=== PATIENT | female | born 1980 | race Caucasian/White ===

== ENCOUNTER 2019-12-26 08:00 | Inpatient (IN) ==
[2019-12-26] MEDS ORDERED: Famotidine 20 MG/2 ML VIAL IVP PRN (08:29)
[2019-12-26] MEDS ORDERED: *HR* FentaNYL (PF) 100 MCG/2 ML VIAL IVP PRN (08:29)
[2019-12-26] MEDS ORDERED: Naloxone 0.4 MG/ML INJ IVP PRN (08:29)
[2019-12-26] MEDS ORDERED: Metoclopramide 10 MG/2 ML VIAL IVP PRN (08:29)
[2019-12-26] MEDS ORDERED: Lidocaine 1% 20 ML MDV INFILT PRN (08:31)
[2019-12-26] MEDS ORDERED: Ondansetron 4 MG/2 ML VIAL IVP PRN (08:31)
[2019-12-26] MEDS ORDERED: Azithromycin 500 MG in 0.9 % Sodium Chloride 250 ML IVPB PRN (08:31)
[2019-12-26] MEDS ORDERED: miSOPROStoL 25 MCG TABLET VG PRN (09:24)
[2019-12-26 09:36] LABS: Basophils % 0.3 %; Eosinophils # 0.2 K/mcL (0.0-0.6); Eosinophils % 1.9 %; Hematocrit 36.8 % (35.3-44.9); Hemoglobin 12.4 g/dL (11.5-15.4); Immature Granulocytes % 0.5 % (0-4); Lymphocytes # 2.3 K/mcL (0.6-4.6); Lymphocytes % 22.9 %; Mean Corpuscular HGB Conc 33.7 g/dL (31.6-35.5); Mean Platelet Volume 11.3 fL (9.4-12.4); Monocytes # 0.9 K/mcL (0.0-1.3); Monocytes % 9.1 %; Neutrophils # 6.5 K/mcL (1.6-8.9); Platelet Count 183 K/mcL (140-400); Red Cell Distribution Width 13.3 % (11.5-14.5); Segmented Neutrophils % 65.3 %
[2019-12-26] MEDS: Ringers Solution, Lactated 1,000 ML IVC SCH ×2 (10:30→13:51)
[2019-12-26] MEDS ORDERED: EPHEDrine 50 MG/ML VIAL IVP PRN (11:56)
[2019-12-26] MEDS ORDERED: Epidural Premix (fent/bupiv) 110 ML EP SCH (12:00)
[2019-12-26] MEDS ORDERED: *HR* Oxytocin 10 UNIT/ML VIAL IM ONE (13:03)
[2019-12-26] MEDS ORDERED: Methylergonovine 0.2 MG/ML AMPUL IM ONE (13:03)
[2019-12-26] MEDS ORDERED: *HR* FentaNYL (PF) 100 MCG/2 ML VIAL ONE (13:17)
[2019-12-26 13:50] LABS: Amphetamine Screen,Urine Negative ng/mL (Cutoff=1000); Barbiturate Screen,Urine Negative ng/mL (Cutoff=200); Benzodiazepines Screen,Urine Negative ng/mL (Cutoff=200); Cannabinoid Screen,Urine Negative ng/mL (Cutoff = 50); Cocaine Screen,Urine Negative ng/mL (Cutoff= 300); Opiate Screen,Urine Negative ng/mL (Cutoff=300); Phencyclidine Screen,Urine Negative ng/mL (Cutoff=25)
[2019-12-26] MEDS ORDERED: Oxytocin 20 units/ LR 1000 mL 20 UNIT/1,000 ML BAG IVC SCH (16:30)
[2019-12-26] MEDS ORDERED: Acetaminophen 325 MG TABLET PO PRN (23:25)
[2019-12-26] MEDS ORDERED: Measles/Mumps/Rubella Vacc 0.5 ML VIAL SQ PRN (23:25)
[2019-12-26] MEDS ORDERED: Benzocaine/Menthol 56 GM AEROSOL SPRAY TP PRN (23:25)
[2019-12-26] MEDS ORDERED: Lanolin 7 G OINT...G. TP PRN (23:25)
[2019-12-26] MEDS ORDERED: Rho Immune Globulin 1,500 UNIT SYRINGE IM PRN (23:25)
[2019-12-27] MEDS: Ibuprofen 600 MG TABLET PO PRN ×3 (01:10→21:59)
[2019-12-27] MEDS: Oxytocin 20 units/ LR 1000 mL 20 UNIT/1,000 ML BAG IVC SCH ×2 (01:11→06:27)
[2019-12-27] MEDS: Ondansetron ODT 4 MG TAB.RAPDIS SL PRN (08:34)
[2019-12-27] MEDS: Prenatal Vit/FA 1 EACH TABLET PO SCH (10:20)
[2019-12-27] MEDS ORDERED: Ringers Solution, Lactated 1,000 ML IVC SCH (13:45)
[2019-12-27] MEDS: Ringers Solution, Lactated 1,000 ML IVC SCH (13:59)
[2019-12-28] MEDS: Ringers Solution, Lactated 1,000 ML IVC SCH (00:56)
[2019-12-28] MEDS: Ondansetron ODT 4 MG TAB.RAPDIS SL PRN ×2 (02:43→08:21)
[2019-12-28 07:42] VITALS: BP 91/47
[2019-12-28] MEDS: Prenatal Vit/FA 1 EACH TABLET PO SCH (08:20)
[2019-12-28] MEDS: Ibuprofen 600 MG TABLET PO PRN (08:21)
[2019-12-28] MEDS ORDERED: Simethicone 80 MG TAB.CHEW PO PRN (09:22)
== END 2019-12-28 16:35 | disposition home or self-care (01) | DRG 807 ==
LOC: 1NENULAB 08:10 → 1NENUOBS 12-27 01:06
PROVIDERS: ADMIT Obstetrics & Gynecology; ATTEND Obstetrics & Gynecology